=== PATIENT | male | born 1995 | race Asian ===

== ENCOUNTER 2023-06-16 19:24 | Emergency (ER) | payer BC, OTHER ==
[~2023-06-16] VITALS: Ht 175.3 cm; Wt 89.8 kg
[2023-06-16] MEDS ORDERED: FAMOTIDINE (20 MG) 20 MG TABLET ONE (19:36)
[2023-06-16] MEDS ORDERED: predniSONE 20 MG TABLET ONE (19:36)
[2023-06-16] MEDS ORDERED: LORATADINE 10 MG TABLET ONE (19:37)
[2023-06-16] MEDS: predniSONE 50 MG TABLET PO ONE (19:39)
[2023-06-16] MEDS: FAMOTIDINE (20 MG) 20 MG TABLET PO ONE (19:39)
[2023-06-16] MEDS: LORATADINE 10 MG TABLET PO SCH (19:39)
[2023-06-16] MEDS ORDERED: FAMO20TA80 PO (22:06)
[2023-06-16] MEDS ORDERED: PRED50TA PO (22:06)
[2023-06-16] MEDS ORDERED: LORA10TA7 PO (22:06)
[2023-06-16 22:12] VITALS: BP 119/60; TEMP 99.2; O2SAT 96
== END 2023-06-16 22:12 | disposition home or self-care (01) ==
LOC: ER 19:25
DX: L50.9 Urticaria, unspecified (principal); T78.1XXA Other adverse food reactions, not elsewhere classified, initial encounter; X58.XXXA Exposure to other specified factors, initial encounter
CPT/HCPCS: 99284; J7512